=== PATIENT | male | born 1950 ===

== ENCOUNTER 2023-05-10 15:22 | Outpatient (AMB) | payer MEDICARE, SELFPAY ==
--- NOTE | 2023-05-10 15:52 | A.SPINEOV_ITS ---
Intake Intake Visit Reasons: bilateral leg pain Intake Note: Mr. Soria is here today c/o bilateral leg pain. CT Scan done @ [facility]. Surgery done [address] Cerrato [employer] Required: No Assessment & Plan Assessment & Plan (1) Neuropathy: Code(s): G62.9 - Polyneuropathy, unspecified (2) Chronic pain syndrome: Code(s): G89.4 - Chronic pain syndrome Plan Dear colleague, On 05/10/2023, I saw Cooper with a chief complaint of radiating pain down the posterior legs. As you know, he underwent an L5-S1 fusion with Dr. Gerardo and I performed an L3-4 decompression in 2019. He is usingOnynuzinte to control the pain down his legs. He was trying to get out of this medication which resulted in a returning pain in an S1 distribution. He comes to see me to go over CT scan of the lumbar spine. We went over the CT of April 12, 2022 that shows that the bilateral L5 and S1 nerve roots are completely free. He apparently also had an EMG done which showed no nerve abnormality. I told patient that there is no surgical cause for his symptoms. I discharged him from further follow-up. I spent 30 minutes in this consult for preparation, review imaging and discussing plan of care. Mark Anthony Cerrato MD, PhD Spine Fellowship Trained Neurosurgeon Director, [facility] Coding Level of Care Code New Pt Level 3 (99471) Diagnoses Neuropathy G62.9 Chronic pain syndrome G89.4
== END 2023-05-10 16:37 | disposition home or self-care (01) ==
PROVIDERS: Visit Provider Neurological Surgery
DX: G62.9 Polyneuropathy, unspecified (principal); G89.4 Chronic pain syndrome
CPT/HCPCS: 99203

== ENCOUNTER → 2023-05-10 15:22 | Outpatient (BNVA) | payer BC, SELFPAY | PROVIDERS: Visit Provider Neurological Surgery | DX: G62.9 Polyneuropathy, unspecified (principal); G89.4 Chronic pain syndrome | CPT/HCPCS: 99202 ==